=== PATIENT | male | born 1945 | race Caucasian/White ===

== ENCOUNTER 2017-03-02 05:45 | Emergency (ER) | payer MEDICARE, OTHER ==
[2017-03-02] MEDS ORDERED: MIDODRINE HCL10 MG PO (06:05)
[2017-03-02] MEDS ORDERED: NORCO 5-325 TA1 EACH PO ×2 (06:05→06:08)
[2017-03-02] MEDS ORDERED: NAFCILLIN SODIUM2 GM INJ (06:07)
[2017-03-02] MEDS ORDERED: NYSTATIN1 EAC7 MISC (06:10)
[2017-03-02] MEDS ORDERED: OXACILLIN SODIUM2 GM IV (06:11)
[2017-03-05] MEDS ORDERED: MEGESTROL400 MG/10 PO (12:35)
== END 2017-03-02 06:20 ==
LOC: ED 05:45
DX: T82.898A Other specified complication of vascular prosthetic devices, implants and grafts, initial encounter (principal); I10 Essential (primary) hypertension; J44.9 Chronic obstructive pulmonary disease, unspecified; Z79.899 Other long term (current) drug therapy
CPT/HCPCS: 96374; 99282

== ENCOUNTER 2017-03-03 05:49 | Emergency (ER) | payer MEDICARE, OTHER ==
[~2017-03-03] VITALS: Ht 162.6 cm; Wt 72.6 kg
[~2017-03-03 05:49] MED LIST: MIDODRINE HCL10 MG PO; NAFCILLIN SODIUM2 GM INJ; NORCO 5-325 TA1 EACH PO; NYSTATIN1 EAC7 MISC; OXACILLIN SODIUM2 GM IV
[2017-03-05] MEDS ORDERED: MEGESTROL400 MG/10 PO (12:35)
== END 2017-03-03 06:30 | disposition home or self-care (01) ==
LOC: ED 05:49
DX: T82.898A Other specified complication of vascular prosthetic devices, implants and grafts, initial encounter (principal); F17.200 Nicotine dependence, unspecified, uncomplicated; Z79.899 Other long term (current) drug therapy
CPT/HCPCS: 96374; 99282

== ENCOUNTER 2017-03-10 11:54 | Emergency (ER) | payer MEDICARE, OTHER ==
[~2017-03-10] VITALS: Ht 162.6 cm; Wt 72.6 kg
[~2017-03-10 11:54] MED LIST changes: +MEGESTROL400 MG/10 PO
[2017-03-10] MEDS ORDERED: FENTANYL1 EAC1 TD (12:33)
[2017-03-10] MEDS ORDERED: MIDODRINE HCL10 MG PO (12:37)
[2017-03-10] MEDS ORDERED: NAFCILLIN2 GM/100 M IV/IM (12:38)
[2017-03-10] MEDS ORDERED: K-TAB ER20 MEQ PO (12:40)
== END 2017-03-10 20:06 | disposition short-term general hospital (02) ==
LOC: ED 11:54
DX: K92.2 Gastrointestinal hemorrhage, unspecified (principal); J44.9 Chronic obstructive pulmonary disease, unspecified; K21.9 Gastro-esophageal reflux disease without esophagitis; I48.91 Unspecified atrial fibrillation; F17.200 Nicotine dependence, unspecified, uncomplicated; Z79.891 Long term (current) use of opiate analgesic; Z79.899 Other long term (current) drug therapy; Z79.2 Long term (current) use of antibiotics
CPT/HCPCS: 71010; 80048; 80053; 81001; 85025; 85610; 85730; 96374; 96375; 96376; 99285; J1170; J2354; J3480; J7050